=== PATIENT | female | born 1950 | race Hispanic/Latino ===

== ENCOUNTER 2018-06-08 10:09 | Outpatient (CLI) | payer MEDICARE, BC | END 2018-06-08 10:10 | disposition home or self-care (01) | LOC: RAD 10:09 ==

== ENCOUNTER 2018-06-17 07:39 | Day surgery (SDC) | payer MEDICARE, BC ==
[2013-06-14 19:43] VITALS: BMI 27.4
[2018-06-17] MEDS ORDERED: Bupivacaine 0.5% 50 ML IJ ONE (09:57)
[2018-06-17] MEDS ORDERED: Lidocaine 1% Inj (20ml) ONE (09:57)
--- NOTE | 2018-06-17 10:34 | PCM.SURG1 ---
Surgeon's Initial Post Op Note - Surgeon's Notes Surgeon: Bayron Mistry Quick Mixer Operator: Xavi Navas Type of Anesthesia: Local Pre-Operative Diagnosis: Left posterior thigh pedunculated mass Operative Findings: Left posterior thigh pedunculated mass [id number] Post-Operative Diagnosis: s/p excision of left thigh pedunculated mass Operation Performed: Excision of the mass Specimen/Specimens Removed: thight mass [id number] Estimated Blood Loss: EBL {In ML}: 1 Blood Products Given: N/A Drains Used: No Drains Post-Op Condition: Good Date of Surgery/Procedure: 06/17/18 Time of Surgery/Procedure: 10:10
[2018-06-17 10:40] VITALS: O2SAT 97
[2018-06-17 10:55] VITALS: PULSE 83; RESP 20
[2018-06-17 11:30] VITALS: BP 157/70; TEMP 98.4
--- NOTE | 2018-06-18 19:14 | PCM.OP ---
Operative Report - Operative Report Date of Surgery/Procedure: 06/17/18 Time of Surgery/Procedure: 09:00 Surgeon: Dr. Mistry Conditioner Tumbler Operator: bushra Navas Anesthesia/Sedation: Lidocaine 1% and marcaine 0.25% Pre-Operative Diagnosis: Left thigh mass Post-Operative Diagnosis: Left thigh mass Indication for Surgery: Left thigh mass Operative Findings: Left posterior thigh pedunculated mass [id number]. Procedure/Operation Description: Timeout procedure was performed prior to initiating procedure to be sure of right patient and right location. The area surrounding the skin lesion was prepared and draped in the usual sterile manner and then was anesthetized. Skin incision was made around the stalk of the pedunculated mass in a elliptical fashion and mass was excised using scalpel. Hemostasis was assured with electrocautery. interrupted 3.0 vicryl was used to approximate the dermal layer. 4.0 monocryl subcuticular stitch was applied. The patient tolerated the procedure well. Estimated Blood Loss: 1 Sponge/Instrument Count: correct Complications: None Specimen: [id number] pedunculated mass Discharge & Condition: Sent to [facility] in stable condition.
== END 2018-06-17 11:00 | disposition home or self-care (01) ==
LOC: SDS 07:39 → OPSURG 07:39
PROVIDERS: ATTEND Surgery
DX: D17.24 Benign lipomatous neoplasm of skin and subcutaneous tissue of left leg (principal)

== ENCOUNTER 2018-06-30 07:49 | Outpatient (CLI) | payer MEDICARE, BC | END 2018-06-30 07:50 | disposition home or self-care (01) | LOC: RAD 07:49 | DX: R22.2 Localized swelling, mass and lump, trunk (principal) ==

== ENCOUNTER 2018-07-12 11:16 | Outpatient (CLI) | payer MEDICARE, BC | END 2018-07-12 11:17 | disposition home or self-care (01) | LOC: RAD 11:17 | DX: M50.01 Cervical disc disorder with myelopathy, high cervical region (principal); M48.02 Spinal stenosis, cervical region; M50.221 Other cervical disc displacement at C4-C5 level ==

== ENCOUNTER 2018-10-04 09:01 | Outpatient (CLI) | payer MEDICARE, BC | END 2018-10-04 09:02 | disposition home or self-care (01) | LOC: LAB 09:01 ==